=== PATIENT | female | born 1975 | race African-American/Black ===

== ENCOUNTER 2017-03-30 10:29 | Emergency (ER) | payer BC, OTHER ==
[~2017-03-30] VITALS: Ht 160 cm; Wt 68.9 kg
[2017-03-30 10:30] VITALS: Ht 160 cm; Wt 68.9 kg
[2017-03-30] MEDS ORDERED: IBUP-1542 PO (12:40)
[2017-03-30] MEDS ORDERED: AZIT500T3 PO (12:40)
--- NOTE | 2017-03-30 12:45 | ERD ---
ER Documentation Chief Complaint Chief Complaint fever , cough , sore throat , headcahe x 3 days HPI This 41-year-old female presents with sore throat for last 4 days. She has low- grade fever triage. She has cough, vomiting, abdominal pain, neck stiffness, rashes. ROS All systems reviewed and are negative except as per history of present illness. Medications Home Meds Active Scripts Ibuprofen* (Motrin*) 600 Mg Tab, 600 MG PO Q6, #15 TAB Prov:GURINDER AMBRIZ MD 03/30/17 Azithromycin* (Zithromax*) 500 Mg Tablet, 500 MG PO DAILY for 5 Days, TAB Prov:GURINDER AMBRIZ MD 03/30/17 Allergies Allergies: Coded Allergies: Penicillins (Unverified Allergy, Intermediate, HIVES BUT REC'D ANCEF W/O PROBLEM, 03/11/06) Physical Exam Vitals Vital Signs Date Time Temp Pulse Resp B/P Pulse Ox O2 Delivery O2 Flow Rate FiO2 03/30/17 10:30 100.4 72 18 123/60 99 Physical Exam Const: [] Alert, not ill-appearing. Head: Atraumatic Eyes: Normal Conjunctiva ENT: Normal External Ears, Nose and Mouth. TMs normal. Her pharynx with 3+ erythema and slight exudate. Airway patent uvula midline. Tender anterior cervical lymphadenitis. Neck: Full range of motion..~ No meningismus. Resp: Clear to auscultation bilaterally Cardio: Regular rate and rhythm, no murmurs Abd: Soft, non tender, non distended. Normal bowel sounds Skin: No petechiae or rashes Back: No midline or flank tenderness Ext: No cyanosis, or edema Neur: Awake and alert Psych: Normal Mood and Affect Procedures/MDM Patient has signs and symptoms of patient counseled may be viral illness but will treat for strep given duration and patient request. She will be treated with Zithromax and ibuprofen, primary care follow-up and return precautions. There is no evidence of abscess or airway obstruction or sepsis. Departure Diagnosis: Primary Impression: Pharyngitis Pharyngitis/tonsillitis etiology: unspecified etiology Qualified Code: J02.9 - Pharyngitis, unspecified etiology Condition: Stable Patient Instructions: Pharyngitis, Strep (Presumed) Additional Instructions: May be viral sore throat but will treat for strep given request. Recheck for new or worsening symptoms with primary care doctor. GURINDER AMBRIZ MD Mar 30, 2017 12:45
[2017-03-30] MEDS ORDERED: IBUPROFEN 600 MG TAB PO ONE (13:00)
== END 2017-03-30 12:53 | disposition home or self-care (01) ==
LOC: FTE 10:29
DX: J02.9 Acute pharyngitis, unspecified (principal)
CPT/HCPCS: Z7502; Z7610; 99283